=== PATIENT | female | born 1990 | race Caucasian/White ===

== ENCOUNTER 2022-05-27 08:21 | Emergency (ER) | payer BC, SELFPAY ==
--- NOTE | 2022-05-27 | ECG_ITS ---
Test Reason : chest pain Blood Pressure : / mmHG Vent. Rate : 062 BPM Atrial Rate : 062 BPM P-R Int : 148 ms QRS Dur : 074 ms QT Int : 378 ms P-R-T Axes : 074 045 065 degrees QTc Int : 383 ms Normal sinus rhythm Normal ECG When compared to the previous EKG of No significant changes seen Referred By: Generic ED Physician Electronically Signed By:Mikel Whitaker
--- NOTE | ~2022-05-27 | XR_ITS ---
EXAMINATION: XR CHEST CLINICAL INFORMATION: Chest pain COMPARISON: None TECHNIQUE: 2 views of the chest were obtained. FINDINGS: No significant abnormality is noted involving the heart, lungs, mediastinum, bony thorax or soft tissues. XR/XR chest 2V IMPRESSION: No acute pulmonary disease.
[2022-05-27 09:14] VITALS: BP 110/79; PULSE 61; RESP 14; TEMP 36.6; O2SAT 100; BMI 24.5
[2022-05-27 09:46] LABS: MANUAL DIFF FLAG NO
[2022-05-27 09:48] LABS: Basophils Percent Auto 0.8 % (0-2); Eosinophils Absolute Auto 0.1 X10*3/uL (0.0-0.4); Eosinophils Percent Auto 1.4 % (0-4); Hematocrit 41.2 % (37.0-47.0); Hemoglobin 13.4 g/dl (12.0-16.0); Imm Gran Abs Auto 0.01 X10*3/uL (0.00-0.03); Imm Gran Pct Auto 0.2 % (0.0-0.4); Lymphocytes Absolute Auto 1.5 X10*3/uL (1.2-4.9); Lymphocytes Percent Auto 30.8 % (20-40); Mean Corpuscular HGB Conc 32.5 g/dl (31.0-35.0); Mean Corpuscular Hemoglobin 27.6 pg (27.0-33.0); Mean Corpuscular Volume 84.8 fL (80.0-98.0); Mean Platelet Volume 10.1 fL (9.4-12.3); Monocytes Absolute Auto 0.6 X10*3/uL (0.1-1.2); Monocytes Percent Auto 11.2 % (2-11); Neutrophils Absolute Auto 2.7 x10*3/uL (2.0-8.3); Neutrophils Percent Auto 55.6 % (45-73); Platelet Count 226 X10*3/uL (160-400); Red Blood Count 4.86 X10*6/uL (4.20-5.50); Red Cell Distribution Width 13.4 % (11.0-16.0); White Blood Count 4.9 X10*3/uL (4.8-10.8)
[2022-05-27 10:02] LABS: Anion Gap 10 (12-20); Blood Urea Nitrogen 12 mg/dL (9-16); Calcium 9.2 mg/dL (8.4-10.2); Carbon Dioxide 28 mmol/L (22-29); Chloride 105 mmol/L (96-108); Creatinine Clr Calc Pharmacy 70.7; Estimated Glomerular Filt Rate > 60; Glucose Random 80 mg/dL (60-115); Potassium 4.2 mmol/L (3.3-5.1); Sodium 139 mmol/L (135-145)
[2022-05-27 10:11] LABS: Troponin-I High Sensitivity < 3.5 ng/L (<3.5-17.0)
== END 2022-05-27 18:30 | disposition left against medical advice (07) ==
LOC: HO.ED 18:13
PROVIDERS: Emergency Provider Emergency Medicine; PCP Internal Medicine
DX: R07.89 Other chest pain (principal); R42 Dizziness and giddiness; Z79.899 Other long term (current) drug therapy
CPT/HCPCS: 36415; 71046; 80048; 84484; 85025; 93005; 99283

== ENCOUNTER 2023-06-22 11:47 | Emergency (ER) | payer OTHER, BC, SELFPAY ==
--- NOTE | ~2023-06-22 | XR_ITS ---
EXAMINATION: XR HAND, LEFT CLINICAL INFORMATION: Finger pain COMPARISON: None available. TECHNIQUE: PA, lateral, and oblique views of the left hand. FINDINGS: The bones and soft tissues are normal. No fracture. Alignment is anatomic. Joint spaces are maintained. No erosions or soft tissue calcifications. XR/XR hand LT min 3V IMPRESSION: Normal left hand.
--- NOTE | 2023-06-22 12:59 | ED.GENADULT ---
HPI - General Adult General Chief complaint: Extremity Injury, Upper Stated complaint: L hand inj/Work related Time Seen by Provider: 06/22/23 14:14 Source: patient and RN notes reviewed Mode of arrival: ambulatory Limitations: no limitations History of Present Illness HPI narrative: This is a [id number]-female, with no known medical history, presenting to the ER with complaints of L hand pain after accidentally shutting the car door onto her left hand while at work today. No numbness or tingling. Pain worsens with movement, making a fist and with palpation. She did not take any medications prior to her arrival. She is right handed. No other complaints or concerns at this time. MD complaint: Hand pain Onset (ago): hour(s) Radiation: non-radiation Quality: aching Pain Consistency: constant Relieving factors: cold therapy Exacerbating factors: movement and rest Associated symptoms: denies other symptoms Treatments prior to arrival: none Related Data Allergies Allergy/AdvReac Type Severity Reaction Status Date / Time No Known Allergies Allergy Unverified 07/25/20 18:39 Review of Systems Review of Systems: Yes all other systems are reviewed and are negative Constitutional: Constitutional: Reports as per [facility] Social History Social History Advance Directives: No Physical Exam ED Vital Signs: Vital Signs - 24 hr 06/22/23 13:00 Temperature 98 F Pulse Rate 67 Respiratory Rate 18 Blood Pressure 102/74 Pulse Oximetry 100 Oxygen Delivery Method Room Air BMI result Body Mass Index 23.5 Const General: cooperative, comfortable and no acute distress Orientation/consciousness: patient oriented x3 Limitations: no limitations HENMT Head: Yes normal to inspection, Yes normocephalic and Yes atraumatic Ears: hearing grossly normal bilaterally General nose exam: Normal external nose present Face and sinus: Yes normal facial exam Mouth: Normal oral and palatal mucosa present, oropharynx normal and moist mucous membranes Throat: Yes posterior oropharynx normal Eyes General: appearance normal, both eyes and all related structures Eyelids: Yes eyelids normal Conjunctivae: conjunctivae normal Sclerae: sclerae normal Pupils: Equal, round and reactive pupils present EOM: EOMs intact bilaterally Neck Neck: Yes normal visual inspection, Yes full ROM and Yes no lymphadenopathy Lymphatic: no lymphadenopathy noted Chest Chest palpation & inspection: normal inspection of the chest Resp Effort & Inspection: normal respiratory effort and able to speak in complete sentences Auscultation: clear to auscultation bilaterally, no crackles, no rales, no rhonchi and no wheezes Cardio Rate: regular rate Rhythm: regular rhythm Heart sounds: S1 normal heart sound present and S2 normal heart sound present GI Inspection: Yes normal to inspection Skin General skin exam: no rashes or lesions noted Trauma: no lacerations or abrasions Wounds: no wounds Neuro General: patient oriented x3 and moves all extremities Cranial nerves: Yes Equal, round and reactive pupils present Extrem Other: L hand with TTP over the fourth and fifth DIP and PIP. Able to flex and extend at the DIP and PIP, however reporting worsening pain. Radial pulses 2+, all other digits with ROM and are nontender. No overlying skin changes. Full ROM of the wrist. No snuff box tenderness. General: Yes normal to inspection Right upper extremity: normal to inspection Left upper extremity: normal to inspection Right lower extremity: normal to inspection Left lower extremity: normal to inspection Course Course Course Narrative: This is an RME: Additional HPI, ROS, PE not included below will be deferred to primary provider. Patient is a 32 year old female who is presenting after closing her left hand in a car door. Work related injury. Fingers 2-4 are bruised. Right hand dominant. Plan: imaging Medications Administered Discontinued Medications Generic Name Dose Route Start Last Admin Trade Name Freq PRN Reason Stop Dose Admin Acetaminophen 650 mg 06/22/23 15:28 06/22/23 15:32 Acetaminophen 325 Mg Tablet PO 06/22/23 15:29 650 mg ONCE ONE Administration Medical Decision Making Medical Decision Making [facility] Narrative: 32 f/o F presenting to the ER with complaints of left hand pain and swelling after slamming her hand in her car door at work. Xray was obtained and revealed no bony abnormalities. Pt's hand placed in john wrap. Educated on RICE techniques. If symptoms persist, she was advised to f/u with orthopedics - given referral. Pt understands and agree with plan Differential Diagnosis Differential Diagnoses: The differential diagnosis associated with the presentation includes Fracture, contusion, dislocation Radiology Impression Discussion of test interpretation with radiology: I have reviewed the radiologist's reading. Radiologist Impression: EXAMINATION: XR HAND, LEFT CLINICAL INFORMATION: Finger pain? COMPARISON: None available.? TECHNIQUE: PA, lateral, and oblique views of the left hand. FINDINGS: The bones and soft tissues are normal. No fracture. Alignment is anatomic. Joint spaces are maintained. No erosions or soft tissue calcifications.? XR/XR hand LT min 3V IMPRESSION: Normal left hand. Dictated By: Sarai Chinchilla MD Discharge Plan Discharge Clinical Impression: Contusion of hand, left Patient Disposition: Home, Self-Care Instructions: Contusion in Adults (ED) Additional Instructions: Please rest, ice, wear John wrap for comfort, and elevate your hand for the rest of the day today. Take Tylenol as directed as needed for pain. If any new or worsening symptoms occur including but not limited to worsening pain, decreased range of motion of your hand, please return for re-evaluation. We also given referral to Orthopedics, if you notice that your symptoms have not improved over the next couple of days you can call them in follow-up with them. Referrals: [facility] [place] Orthopedic Surgeons [Provider Group] Stand Alone Forms: Work/School Release Interventions: ED Discharge Assessment Last Done: 06/22/23 15:44 Discharge Date/Time: 06/22/23 15:45
[2023-06-22 13:00] VITALS: BP 102/74; PULSE 67; RESP 18; TEMP 36.6; O2SAT 100; BMI 23.5
[2023-06-22] MEDS: Acetaminophen 325 MG TABLET 650 MG PO (15:32)
== END 2023-06-22 15:45 | disposition home or self-care (01) ==
PROVIDERS: Emergency Provider Emergency Medicine; PCP Internal Medicine
DX: S60.222A Contusion of left hand, initial encounter (principal); W23.0XXA Caught, crushed, jammed, or pinched between moving objects, initial encounter; Y93.89 Activity, other specified; Y92.810 Car as the place of occurrence of the external cause; Y99.0 Civilian activity done for income or pay
CPT/HCPCS: 73130; 99283

== ENCOUNTER 2025-06-20 10:47 | Emergency (ER) | payer OTHER, BC, SELFPAY ==
--- NOTE | ~2025-06-20 | XR_ITS ---
EXAMINATION: XR FEMUR, LEFT CLINICAL INFORMATION: dog bite Additional Information:-dog bite at level of arrow COMPARISON: None available. TECHNIQUE: AP and lateral views of the left femur were obtained. FINDINGS: An arrow was placed by the technologist, that indicates the location of the concern in the medial aspect of the distal thigh. There is a very small 0.6-cm long superficial lucency in the vicinity of the arrow, but without radiopaque foreign body. The bones and joints are normal. No fracture. Metallic and radiopaque structures from patient's clothing projects over the pelvis and lateral aspect of the thigh. XR/XR femur LT 2V IMPRESSION: Evidence of small skin defect, but no radiopaque foreign body in the vicinity of the arrow placed in the distal thigh. Electronically signed by: Shahriar Carcamo MD 06/20/2025 12:45 PM EDT
[2025-06-20 10:55] VITALS: BP 133/90; PULSE 104; O2SAT 99
[2025-06-20 10:58] VITALS: BP 124/82; PULSE 79; RESP 20; TEMP 36.8; O2SAT 100; BMI 21.6
[2025-06-20 11:07] VITALS: BP 124/82; PULSE 79; RESP 20; TEMP 36.8; O2SAT 100
--- NOTE | 2025-06-20 11:10 | PC.NURSE ---
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 Pt sts the customer opened the door and the dog ran out and attacked her. A+Ox4, anxious, cooperative. Pt sts she gets very anxious, feels like she was having a panic attack. Pt denies any CP or SOB. RR even and unlabored.
--- NOTE | 2025-06-20 11:27 | ED.ANIMALBIT ---
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 It bit her left thigh and she has bruise on R thigh. Her Tdap is UTD in last one year. The dog confirmed via [employer] is UTD on rabies vaccine. No other injuries noted. Police were on scene MD complaint: animal bite Onset (ago): minute(s) ([employer]NICIAN [employer]ARING) Animal: dog Description of animal: household pet and immunizations UTD Mechanism: bite Location - Extremities: right: thigh Pain description: constant Context: unprovoked Associated symptoms: bleeding Treatments prior to arrival: wound dressing(s) Related Data Previous Rx's ?Medication ?Instructions ?Recorded hydrocodone 5 mg-acetaminophen 325 1 tab PO Q6H PRN pain #10 tabs 06/20/25 mg tablet metronidazole 500 mg tablet 500 mg PO Q8H 3 days #9 tabs 06/20/25 ondansetron 4 mg disintegrating 4 mg PO Q8H PRN nausea and 06/20/25 tablet vomiting #20 tabs sulfamethoxazole 800 1 tab PO BID 3 days #6 tabs 06/20/25 mg-trimethoprim 160 mg tablet (Bactrim DS) Allergies Allergy/AdvReac Type Severity Reaction Status Date / Time amoxicillin Allergy Unknown Verified 06/20/25 11:56 Review of Systems Review of Systems: Constitutional : No Fever, No Chills, Cardiovascular : No Chest Pain, No SOB Respiratory : No Dyspnea Gastrointestinal : No abdominal pain Musculoskeletal : No Joint Swelling Skin : No rash, positive skin laceration Neuro : No Weakness, No Numbness Yes all other systems are reviewed and are negative PMFSH Past Medical History Attestation statement: The following information was validated with the patient. Source: old records reviewed Medical History Solitary kidney, congenital Social History Social History (Updated 06/20/25 @ 11:52 by Clarita Trevino DO) Patient Tobacco Use Status: Never used Tobacco Smoked in Last 30 Days: No Use of substances other than those prescribed or required for medical reasons: No Advance Directives: No Advance Directives Information Provided: Yes Do you have a plan to hurt others: No Plan Physical Exam ED Vital Signs: Vital Signs - 24 hr 06/20/25 10:58 06/20/25 11:07 06/20/25 12:32 Temperature 98.2 F 98.2 F Pulse Rate 79 79 67 Respiratory Rate 20 20 18 Blood Pressure 124/82 124/82 102/68 Pulse Oximetry 100 100 99 Oxygen Delivery Method Room Air Room Air Room Air BMI result Body Mass Index 21.6 Appearance: Alert. Oriented X3. No acute distress. anxious Eyes: Pupils equal, round and reactive to light. ENT: Pharynx normal. Neck: Normal inspection. Neck supple. CVS: Normal heart rate and rhythm. Pulses normal. Respiratory: No respiratory distress. Breath sounds normal. Abdomen: Soft and nontender. Skin: Skin warm and dry. Normal skin color. Normal skin turgor. Extremities: No lower extremity edema. R thigh inner contusion and superficial abrasion, L thigh two bite wounds - one small puncture down to subq 1.5mc, additional laceration open down to subq 2.5cm Neuro: Oriented X 3. No motor deficit. No sensory deficit. CN2-12 intact Medications Administered Discontinued Medications Generic Name Dose Route Start Last Admin Trade Name Freq PRN Reason Stop Dose Admin Bacitracin 1 appl 06/20/25 13:16 06/20/25 13:25 Bacitracin Oint 0.9 Gm Packet TOPICAL 06/20/25 13:17 1 appl ONCE ONE Administration Protocol Lidocaine HCl 5 ml 06/20/25 11:19 06/20/25 11:35 Lidocaine Hcl 1 % Mpf 5 Ml Vial SUBCUT 06/20/25 11:20 5 ml ONCE ONE Administration Lidocaine HCl 5 ml 06/20/25 12:43 06/20/25 13:24 Lidocaine Hcl 1 % Mpf 5 Ml Vial SUBCUT 06/20/25 12:44 5 ml ONCE ONE Administration Lorazepam 1 mg 06/20/25 11:19 06/20/25 11:34 Lorazepam 1 Mg Tablet PO 06/20/25 11:20 1 mg ONCE ONE Administration Metronidazole 500 mg 06/20/25 11:21 06/20/25 11:33 Metronidazole 500 Mg Tablet PO 06/20/25 11:22 500 mg ONCE ONE Administration Ondansetron HCl 4 mg 06/20/25 11:21 06/20/25 11:34 Ondansetron Odt 4 Mg Tab.Preeti TRANSLINGU 06/20/25 11:22 4 mg ONCE ONE Administration Trimethoprim/Sulfamethoxazole 1 tab 06/20/25 11:21 06/20/25 11:34 Sulfamethox/Trimeth 800/160 Tablet PO 06/20/25 11:22 1 tab ONCE ONE Administration Medical Decision Making Medical Decision Making MDM Narrative: 34 yo female with PMH of solitary kidney here with c/o dog bite to L leg she has two wounds will need loose closure - 3 days abx proph, xray of femur. She is NV intact. Differential Diagnosis Differential Diagnoses: The differential diagnosis associated with the presentation includes dog bite Independent Interpretation I performed an independent interpretation of an: Plain X-Ray (normal ) Radiology Impression Discussion of test interpretation with radiology: I have reviewed the radiologist's reading. Independent Historian Clinical information obtained from an independent historian. History obtained from or confirmed by: EMS External Record Review External record reviewed: Outpatient record Prescription Management I considered prescription management with: Pain Medication and Antibiotic Procedures Laceration Laceration 1: Site: lower extremity Side (If applicable): left Size (cm): 1.5 Description: linear Depth: simple, single layer Local Anesthetic: lidocaine 1% Amount of anesthesia used (mL): 3 Pre-repair: wound explored, irrigated extensively and deep structures intact Skin layer closed with: nylon Size (cm): 4-0 Number of sutures: 1 Technique: simple, interrupted Laceration 2: Site: upper extremity Side (If applicable): left Size (cm): 2.5 Description: linear Depth: simple, single layer Local Anesthetic: lidocaine 1% Amount of anesthesia used (mL): 2 Pre-repair: wound explored, irrigated extensively and deep structures intact Skin layer closed with: nylon Size (cm): 4-0 Number of sutures: 4 Technique: simple, interrupted Discharge Plan Discharge Clinical Impression: Dog bite Qualifiers: Encounter type: initial encounter Qualified Code(s): W54.0XXA - Bitten by dog, initial encounter Laceration of left thigh Qualifiers: Encounter type: initial encounter Qualified Code(s): S71.112A - Laceration without foreign body, left thigh, initial encounter Patient Disposition: Home, Self-Care Instructions: Animal Bite (ED), Laceration (ED) Additional Instructions: xray no broken bones take all antibiotics do not drink with antibiotics stitches out in 7 days okay to shower but no pool, ocean, lucia, hot tub monitor for fevers, yellow drainage, increased redness/swelling or any other concerns. Prescriptions: New sulfamethoxazole-trimethoprim [Bactrim DS] 800-160 mg tablet 1 tab PO BID 3 Days Qty: 6 0RF hydrocodone-acetaminophen 5-325 mg tablet 1 tab PO Q6H PRN (Reason: pain) Qty: 10 0RF Rx Instructions: partial fill okay; Partial Fill upon patient request. metronidazole 500 mg tablet 500 mg PO Q8H 3 Days Qty: 9 0RF ondansetron 4 mg tablet,disintegrating 4 mg PO Q8H PRN (Reason: nausea and vomiting) Qty: 20 0RF Stand Alone Forms: Work/School Release Print Language: [place]
--- NOTE | 2025-06-20 11:29 | PC.NURSE ---
spoke [place] - per PD dog was UTD on rabies. [place] reg showed that pt got her tetanus in 2023. provider updated.
[2025-06-20] MEDS: Sulfamethox/Trimeth 800/160 TABLET 1 TAB PO (11:34)
[2025-06-20] MEDS: Lidocaine HCl 1 % MPF 5 ML VIAL SUBCUT ×2 (11:35→13:24)
[2025-06-20 12:32] VITALS: BP 102/68; PULSE 67; RESP 18; O2SAT 99
[2025-06-20 13:51] VITALS: BP 102/68; PULSE 67; RESP 18; TEMP -17.7; TEMP 0; O2SAT 99
== END 2025-06-20 13:52 | disposition home or self-care (01) ==
PROVIDERS: Emergency Provider Emergency Medicine
DX: S71.151A Open bite, right thigh, initial encounter (principal); S71.112A Laceration without foreign body, left thigh, initial encounter; S70.11XA Contusion of right thigh, initial encounter; M79.604 Pain in right leg; W54.0XXA Bitten by dog, initial encounter; Y93.9 Activity, unspecified; Y92.9 Unspecified place or not applicable; Y99.8 Other external cause status; Z23 Encounter for immunization
CPT/HCPCS: 12032; 73552; 99284; J2003

== ENCOUNTER → 2025-06-20 11:42 | Outpatient (BNV) | payer OTHER, SELFPAY | PROVIDERS: Emergency Provider Emergency Medicine; Visit Provider Radiology Body Imaging | DX: S71.152A Open bite, left thigh, initial encounter (principal) | CPT/HCPCS: 73552 ==